=== PATIENT | male | born 1980 | race Caucasian/White ===

== ENCOUNTER 2017-10-01 00:59 | Emergency (ER) | payer OTHER ==
[~2017-10-01] VITALS: Ht 182.9 cm; Wt 93.8 kg
[2017-10-01] MEDS ORDERED: KETOROLAC TROMETHAMINE 30 MG/ML VIAL IV STA (01:47)
[2017-10-01 01:50] VITALS: Ht 182.9 cm; Wt 93.8 kg
[2017-10-01] MEDS ORDERED: DEXAMETHASONE **PF** INJ 10 MG/ML VIAL IV ONE (02:00)
[2017-10-01 02:21] LABS: BASO % 0.6 %; BASO ABS # 0.05 K/uL (0-0.2); EOS % 19.5 %; EOS ABS # 1.58 K/uL (0-0.5); HEMATOCRIT 48.8 % (42-52); HEMOGLOBIN 17.2 g/dL (14.0-18.0); IG# 0.04 K/uL (0.00-0.02); LYMPH % 18.7 %; LYMPH ABS # 1.51 K/uL (1.2-3.4); MEAN CORPUSCULAR HEMOGLOBIN 33.1 pg (25-34); MEAN CORPUSCULAR HGB CONC 35.2 g/dl (32-36); MEAN PLATELET VOLUME 9.3 fL (7.4-10.4); MONO % 11.4 %; MONO ABS # 0.92 K/uL (0.11-0.59); NEUT % 49.3 %; NEUT ABS # 3.99 K/uL (1.4-6.5); PLATELET COUNT 238 K/uL (130-400); RED CELL DISTRIBUTION WIDTH SD 44.7 fL (36.4-46.3); WHITE BLOOD COUNT 8.09 K/uL (4.8-10.8)
[2017-10-01 02:47] LABS: ALBUMIN 3.6 gm/dl (3.4-5.0); CALCIUM 8.9 mg/dl (8.5-10.1); CREATININE 0.97 mg/dl (0.60-1.40)
[2017-10-01 02:51] LABS: POTASSIUM 3.9 mmol/L (3.5-5.1)
[2017-10-01] MEDS ORDERED: CLOBETASOL PROPIONATE 0.05% OINT 15 GM TUBE EXT PRN (03:45)
[2017-10-01] MEDS ORDERED: PRED50TA PO (04:01)
[2017-10-01] MEDS ORDERED: CLBPO15 TOP (04:01)
[2017-10-01 04:16] VITALS: BP 131/80; PULSE 92; TEMP 36.6; O2SAT 100
--- NOTE | 2017-10-01 06:31 | EMERGENCY ROOM VISIT NOTE ---
History First contact with patient: 01:34 Chief Complaint: INFECTION Stated Complaint: PSORIASIS(SEVERE) STAPH INFECTION -SWELLING History of Present Illness The patient is a 37 year old male who presents to the Emergency Room with complaints of ongoing worsening psoriasis for the past several years who lost his insurance and has not been able to afford his medications for the past 3 years. Patient states today he obtained insurance. He comes in shortly after mid night requesting medication for his psoriasis. Patient states he normally takes Enbrel and a couple other creams. He has not had this in over 3 years. Patient states the psoriasis is itchy. Patient denies chest pain, dyspnea, fever, chills, cold symptoms. He has an appointment generally forth with dermatology. Patient is requesting some steroids and psoriasis cream to help out. He is also concerned he might have a bacterial infection. Review of Systems See HPI for pertinent positives & negatives. A total of 10 systems reviewed and were otherwise negative. Past Medical/Surgical History Psoriasis Social History Smoking Status: Never Smoker Alcohol Use: occasionally Drug Use: none Occupation Status: employed Current/Historical Medications Scheduled Clobetasol Propionate (Clobetasol Propionate), 1 APPLN TOP BID Prednisone (Prednisone), 50 MG PO DAILY Physical Exam Vital Signs Date Time Temp Pulse Resp B/P (MAP) Pulse Ox O2 Delivery O2 Flow Rate FiO2 10/01/17 04:16 36.6 92 18 131/80 100 10/01/17 04:09 92 18 131/80 100 Room Air 10/01/17 02:42 94 18 142/78 98 Room Air 10/01/17 01:06 36.6 125 18 138/84 98 Room Air Physical Exam VITALS: Vitals are noted on the nurse's note and reviewed by myself. Vital signs stable. GENERAL: Pleasant male, in no acute distress, nondiaphoretic, well-developed well-nourished. SKIN: Extensive psoriasis sparing his palms of his hands, feet and genitalia and face without signs of secondary to infection. The rest of the skin was without rashes, erythema, edema, or bruising. There is no tenting of the skin. Capillary reflex less than 2 seconds. HEAD: Normocephalic atraumatic. EARS: External auditory canals clear, tympanic membranes pearly hawkins without erythema or effusion bilaterally. EYES: Pupils equal round and reactive to light and accommodation. Conjunctivae without injection, sclerae without icterus. Extraocular movements intact. NOSE: Patent, turbinates without inflammation or discharge. MOUTH: Mucous membranes moist. Pharynx without erythema or exudate. Uvula midline. Airway patent. Tongue does not deviate. NECK: Supple without nuchal rigidity. No lymphadenopathy. No thyromegaly. Cervical spine is nontender. No JVD. HEART: Regular rate and rhythm LUNGS: Clear to auscultation bilaterally without wheezes, rales or rhonchi. No dullness to percussion. No retractions or accessory muscle use. ABDOMEN: Positive bowel sounds x 4. Normal tympanic percussion. Soft, nontender, without masses or organomegaly. Tello sign negative. No guarding or rebound tenderness. MUSCULOSKELETAL: No muscle atrophy, or edema noted. NEURO: Patient was alert and oriented to person place and time. Normal sensation to light and sharp touch. No focal neurological deficits. Medical Decision & Procedures Laboratory Results 10/01/17 02:10 Red Blood Count 5.19, Mean Corpuscular Volume 94.0, Mean Corpuscular Hemoglobin 33.1, Mean Corpuscular Hemoglobin Concent 35.2, Mean Platelet Volume 9.3, Neutrophils (%) (Auto) 49.3, Lymphocytes (%) (Auto) 18.7, Monocytes (%) (Auto) 11.4, Eosinophils (%) (Auto) 19.5, Basophils (%) (Auto) 0.6, Neutrophils # (Auto ) 3.99, Lymphocytes # (Auto) 1.51, Monocytes # (Auto) 0.92, Eosinophils # (Auto ) 1.58, Basophils # (Auto) 0.05 10/01/17 02:10 Test 10/01/17 02:10 White Blood Count 8.09 K/uL (4.8-10.8) Red Blood Count 5.19 M/uL (4.7-6.1) Hemoglobin 17.2 g/dL (14.0-18.0) Hematocrit 48.8 % (42-52) Mean Corpuscular Volume 94.0 fL (80-100) Mean Corpuscular Hemoglobin 33.1 pg (25-34) Mean Corpuscular Hemoglobin Concent 35.2 g/dl (32-36) Platelet Count 238 K/uL (130-400) Mean Platelet Volume 9.3 fL (7.4-10.4) Neutrophils (%) (Auto) 49.3 % Lymphocytes (%) (Auto) 18.7 % Monocytes (%) (Auto) 11.4 % Eosinophils (%) (Auto) 19.5 % Basophils (%) (Auto) 0.6 % Neutrophils # (Auto) 3.99 K/uL (1.4-6.5) Lymphocytes # (Auto) 1.51 K/uL (1.2-3.4) Monocytes # (Auto) 0.92 K/uL (0.11-0.59) Eosinophils # (Auto) 1.58 K/uL (0-0.5) Basophils # (Auto) 0.05 K/uL (0-0.2) RDW Standard Deviation 44.7 fL (36.4-46.3) RDW Coefficient of Variation 13.0 % (11.5-14.5) Immature Granulocyte % (Auto) 0.5 % Immature Granulocyte # (Auto) 0.04 K/uL (0.00-0.02) Anion Gap 5.0 mmol/L (3-11) Est Creatinine Clear Calc Drug Dose 125.2 ml/min Estimated GFR () 115.9 Estimated GFR (Non- 100.0 BUN/Creatinine Ratio 11.9 (10-20) Calcium Level 8.9 mg/dl (8.5-10.1) Magnesium Level 2.4 mg/dl (1.8-2.4) Total Bilirubin 0.5 mg/dl (0.2-1) Direct Bilirubin 0.2 mg/dl (0-0.2) Aspartate Amino Transf (AST/SGOT) 43 U/L (15-37) Alanine Aminotransferase (ALT/SGPT) 48 U/L (12-78) Alkaline Phosphatase 75 U/L (45-117) Total Protein 8.0 gm/dl (6.4-8.2) Albumin 3.6 gm/dl (3.4-5.0) Thyroid Stimulating Hormone (TSH) 3.140 uIu/ml (0.300-4.500) Medications Administered Medications (Trade) Dose Ordered Sig/Sathish Route Start Time Stop Time Status Last Admin Dose Admin Dexamethasone Sodium Phosphate (Dexamethasone Inj Pf) 10 mg NOW ONCE IV 10/01/17 02:00 1/1/18 02:01 DC 10/01/17 02:10 10 MG Ketorolac Tromethamine (Toradol Inj) 30 mg NOW STAT IV 10/01/17 01:47 10/01/17 01:50 DC 10/01/17 02:10 30 MG ED Course Prior records/ancillary studies reviewed. Triage Nursing notes reviewed. The patient's history was concerning for a rash. Differential diagnosis: Etiologies such as psoriasis, contact dermatitis, viral exanthem, urticaria, allergic reaction, Whiting-Sukhi syndrome, toxic epidermal necrolysis, erythema multiforme, cellulitis, scabies, HSV, varicella, zoster, eczema, staph scalded skin syndrome, fungal infection, as well as others were entertained. Physical examination: Exam and history seem consistent with ongoing psoriasis ER treatment provided: Prednisone, Toradol, steroid cream On reassessment the patient felt better. Diagnostic interpretation by me: The labs revealed no worrisome leukocytosis or electrolyte abnormality The etiology for the patient's rash appears to be consistent with psoriasis. Patient had no signs of bacterial infection. He was given a prescription for steroids for next few days and steroid cream. He is advised to follow-up with dermatology as scheduled in a few days or here in the ER sooner for fevers, severe pain, worsening signs or symptoms or as needed. By the evaluation outlined above emergent etiologies such as Whiting-Sukhi syndrome, toxic epidermal necrolysis, erythema multiforme, cellulitis, scabies, HSV, varicella, zoster, staph scalded skin syndrome, urticaria, allergic reaction, as well as others were deemed relatively unlikely. The pt informed about the findings as listed above. All questions were answered and pleased with the treatment. Return instructions were outlined and the patient was discharged in stable condition. Outpatient prescription management: Prednisone Referral: The patient was referred back to their primary care physician and dermatology for follow-up in 2-3 days for a recheck of the current condition. Case reviewed with my attending Medical Decision As above Medication Reconcilliation Current Medication List: was personally reviewed by me Blood Pressure Screening Patient's blood pressure: Normal blood pressure Impression Primary Impression: Psoriasis Departure Information Dispostion Home / Self-Care Condition GOOD Prescriptions Clobetasol Propionate (CLOBETASOL PROPIONATE) 45 Appln/15 Gm Oint 1 APPLN TOP BID for 30 Days, #60 GM 0 Refills Prov: Taylor Isbell ., SARI 10/01/17 Prednisone (Prednisone) 50 Mg Tab 50 MG PO DAILY for 4 Days, #4 TAB Prov: Taylor Isbell PA-C 10/01/17 Forms WORK / SCHOOL INSTRUCTIONS, HOME CARE DOCUMENTATION FORM, IMPORTANT VISIT INFORMATION Patient Instructions Psoriasis, Psoriasis Manage, My [facility] [place] [employer] Additional Instructions Do not scratch at your psoriasis. This can cause a secondary bacterial infection. Prednisone 50mg: Once daily until the prescription is finished. It is best to take this earlier in the day as some patients note occasional difficulty falling asleep when taken in the late evening. Continue creams as directed. Keep your appointment as scheduled with dermatology this week for definitive care for your psoriasis. Continue current medications. Return to the ER for fevers, difficulty breathing, fevers, vomiting, worsening of your condition, or as needed. Follow up with your primary physician this week for a recheck of your current condition.
== END 2017-10-01 04:16 | disposition home or self-care (01) ==
LOC: C.EDB 01:01 → C.EDA 04:16
DX: L40.9 Psoriasis, unspecified (principal)